=== PATIENT | male | born 1990 | race Caucasian/White ===

== ENCOUNTER 2017-11-27 08:23 | Emergency (ER) | payer OTHER ==
--- NOTE | 2017-11-27 09:10 | EDM.PDOC ---
ED HPI GENERAL MEDICAL PROBLEM - General Chief Complaint: ENT Problem Stated Complaint: [id number] BACTIRIAL EYE INFECTION Time Seen by Provider: 11/27/17 08:45 Source of Information: Reports: Patient, RN, RN Notes Reviewed History Limitations: Reports: No Limitations - History of Present Illness INITIAL COMMENTS - FREE TEXT/NARRATIVE: C/O onset of irritated eyes yesterday, and woke this morning with yellow/green matted eyes. Also c/o minor burn to left hand that occurred yesterday when pt accidentally put his hand on a hot fryer surface. Denies any other injury or symptoms. Tetanus vaccine is up to date per pt. Onset Date: 11/26/17 Duration: Constant Location: Reports: Upper Extremity, Left, Other (eyes) Severity: Moderate Improves with: Reports: None Worsens with: Reports: None Associated Symptoms: Reports: No Other Symptoms Bilateral Eye Pain Score (Numeric/FACES): 3 - Related Data Allergies Allergy/AdvReac Type Severity Reaction Status Date / Time No Known Allergies Allergy Verified 11/27/17 08:27 Home Meds: Home Meds . [No Known Home Meds] 11/27/17 [History] Past Medical History HEENT History: Reports: Allergic Rhinitis - Past Surgical History GI Surgical History: Reports: Cholecystectomy Social & Family History - Family History Family Medical History: Noncontributory - Tobacco Use Smoking Status *Q: Never Smoker Second Hand Smoke Exposure: No - Recreational Drug Use Recreational Drug Use: No - Living Situation & Occupation Occupation: Employed ED ROS ENT - Review of Systems Review Of Systems: ROS reveals no pertinent complaints other than HPI. ED EXAM, ENT - Physical Exam Exam: See Below Exam Limited By: No Limitations General Appearance: Alert, WD/WN, No Apparent Distress Eye Exam: Bilateral Eye: Conjunctival Injection (w/yellow matting), EOMI, PERRL , Other (scleral injection B/L) Ears: Normal External Exam, Normal Canal, Hearing Grossly Normal, Normal TMs Nose: Normal Inspection, Normal Mucousa, No Blood Mouth/Throat: Normal Inspection, Normal Gums, Normal Lips, Normal Oropharynx, Normal Teeth Head: Atraumatic, Normocephalic Neck: Normal Inspection, Supple, Non-Tender, Full Range of Motion Respiratory/Chest: No Respiratory Distress, Lungs Clear, Normal Breath Sounds, No Accessory Muscle Use, Chest Non-Tender Cardiovascular: Regular Rate, Rhythm Extremities: Normal Range of Motion, Normal Capillary Refill, Other (left ulnar hand and 5th finger w/4cm x 1.5cm superficial partial thickness burn with skin intact, no sign of infection) Neurological: Alert, Oriented, CN II-XII Intact, Normal Cognition, Normal Gait, No Motor/Sensory Deficits Psychiatric: Normal Affect, Normal Mood Course - Vital Signs Last Recorded V/S: Last Vital Signs Temp 36.9 C 11/27/17 08:27 Pulse 70 11/27/17 08:27 Resp 16 11/27/17 08:27 BP 132/67 11/27/17 08:27 Pulse Ox 99 11/27/17 08:27 - Orders/Labs/Meds Meds: Medications Discontinued Medications Generic Name Dose Route Start Last Admin Trade Name Vicki PRN Reason Stop Dose Admin Bacitracin 1 dose 11/27/17 09:16 11/27/17 09:36 Bacitracin Oint 1 Gm TOP 11/27/17 09:17 1 dose ONETIME ONE Administration Gentamicin Sulfate 1 ml 11/27/17 09:17 11/27/17 09:36 Garamycin 0.3% Ophth Soln EYEBOTH 11/27/17 09:18 1 drop ONETIME ONE Administration Departure - Departure Time of Disposition: 09:20 Disposition: Home, Self-Care 01 Condition: Good Clinical Impression: Superficial partial thickness burn of hand Conjunctivitis Qualifiers: Conjunctivitis type: acute Acute conjunctivitis type: bacterial Laterality: bilateral Qualified Code(s): H10.33 - Unspecified acute conjunctivitis, bilateral - Discharge Information Instructions: Bacterial Conjunctivitis, [id number]-[id number], Burn Care, Adult, Easy-to -Read Referrals: PCP,None [Primary Care Provider] - Forms: ED Department Discharge Additional Instructions: Gentamicin Ophthalmic Solution 0.3%: One drop in each eye four times a day for five days. Use over the counter Bacitracin Zinc Ointment to burn twice a day for 5 to 7 days. Don't wear contacts until eyes are completely clear of infection/irritation. Follow up in clinic if not improving in 3 days.
[2017-11-27] MEDS ORDERED: Bacitracin Oint 1 GM U/D Packet TOP ONE (09:16)
[2017-11-27] MEDS ORDERED: Gentamicin 0.3% Ophth Soln 5 ML Bottle EYEBOTH ONE (09:17)
== END 2017-11-27 09:41 | disposition home or self-care (01) ==
LOC: DL.ED 08:23
DX: T23.022A Burn of unspecified degree of single left finger (nail) except thumb, initial encounter (principal); H10.33 Unspecified acute conjunctivitis, bilateral; X16.XXXA Contact with hot heating appliances, radiators and pipes, initial encounter
CPT/HCPCS: 99282; A9270